=== PATIENT | male | born 1955 | race Caucasian/White ===

== ENCOUNTER 2016-07-12 08:30 | Day surgery (SDC) | payer OTHER ==
[~2016-07-12] VITALS: Ht 170.2 cm; Wt 74.9 kg
[~2016-07-12 08:30] MED LIST: FLEXERIL 1010 MG/TAB PO; LORTAB 5/500 501 TAB PO; MULTIPLE VITAMI1 CAP PO; NAPROSYN500 MG PO; NORVASC 10MG10 MG PO
[2016-07-12] MEDS ORDERED: CIPRO 500MG TA500 MG PO (08:56)
[2016-07-12 08:59] VITALS: BP 141/91; PULSE 77; TEMP 98.3
[2016-07-12 10:40] VITALS: BP 112/81; PULSE 76; TEMP 98.3
[2016-07-12 10:55] VITALS: BP 105/76; PULSE 82
[2016-07-12 11:10] VITALS: BP 128/65; PULSE 74
[2016-07-12 11:25] VITALS: BP 114/79; PULSE 77
== END 2016-07-12 11:35 | disposition home or self-care (01) ==
LOC: SDCO 08:30
DX: Z12.11 Encounter for screening for malignant neoplasm of colon (principal); K57.30 Diverticulosis of large intestine without perforation or abscess without bleeding; K21.9 Gastro-esophageal reflux disease without esophagitis; I10 Essential (primary) hypertension
CPT/HCPCS: J2250; J2405; J3010; J7030